=== PATIENT | male | born 1995 | race Caucasian/White ===

== ENCOUNTER 2022-02-23 07:32 | Emergency (ER) | payer OTHER, SELFPAY ==
--- NOTE | ~2022-02-23 | XR_ITS ---
EXAMINATION: XR chest 2V EXAM DATE: 02/23/2022 08:02 INDICATION: Bilateral shoulder, back pain. TECHNIQUE: Frontal and lateral projections of the chest obtained and reviewed. There is no prior mary dy for comparison. FINDINGS: The lungs are clear. There are no pleural effusions. The cardiomediastinal silhouette is within normal limits. There is no pneumothorax suspected. The bones and soft tissues are unremarkab le. IMPRESSION: Normal chest x-ray exam. Reviewed, dictated and finalized at location B. IMPRESSION: Normal chest x-ray exam.
[2022-02-23 07:39] VITALS: BP 154/102; PULSE 107; RESP 17; TEMP 36.4; O2SAT 100
[2022-02-23 07:41] VITALS: PULSE 110
--- NOTE | 2022-02-23 07:42 | ECG_ITS ---
Measurements Intervals [place] Rate: 104 P: 46 [place]: 156 QRS: 49 QRSD: 102 T: 44 QT: 328 QTc: 432 Interpretive Statements SINUS TACHYCARDIA POSSIBLE LEFT ATRIAL ENLARGEMENT [-0.1mV P WAVE IN V1/V2] BORDERLINE ECG NO PREVIOUS ECG AVAILABLE FOR COMPARISON Electronically Signed On 02-23-2022 15:40:54 CDT by Ty Mccarty M.D.
--- NOTE | 2022-02-23 08:07 | ED.GENADULT ---
HPI - General Adult General Chief complaint: Unspecified Stated complaint: bilateral shoulder pain, back pain Time Seen by Provider: 02/23/22 07:50 Source: patient Mode of arrival: ambulatory Limitations: no limitations History of Present Illness HPI narrative: Patient is a 26-year-old male complaining of chest pain, right-sided, 7 out of 10, sharp radiating to back, worse with deep breaths, started this morning. Patient states that he had URI symptoms 1 week ago. Patient denies any shortness of breath, abdominal pain, nausea, vomiting, diaphoresis, fever or chills Related Data Home Medications Medication Instructions Recorded Confirmed No Home Medications 02/23/22 02/23/22 Allergies Allergy/AdvReac Type Severity Reaction Status Date / Time No Known Allergies Allergy Verified 02/23/22 07:41 Review of Systems Review of Systems: All systems reviewed & are unremarkable except as noted in HPI and below Constitutional: Constitutional: Denies body ache(s), Denies chills, Denies excessive sweating, Denies fatigue, Denies fever(s), Denies headache(s), Denies lethargy, Denies malaise, Denies weakness and Denies weight loss Eyes: Eyes: Denies blurry vision, Denies change in vision and Denies loss of vision ENT: Denies dizziness, Denies ear discharge, Denies headache(s), Denies lip swelling, Denies epistaxis, Denies nasal congestion, Denies neck pain, Denies throat swelling and Denies tongue swelling Cardiovascular: Cardiovascular: Denies diaphoresis, Denies rapid heart rate, Denies edema, Denies irregular heart rhythm, Denies lightheadedness, Denies palpitations, Denies dyspnea and Denies dyspnea on exertion Respiratory: Respiratory: Denies chest congestion, Denies cough, Denies hemoptysis, Denies dyspnea and Denies dyspnea on exertion Gastrointestinal: Gastrointestinal: Denies abdominal pain, Denies melena, Denies hematochezia, Denies diarrhea, Denies nausea, Denies vomiting and Denies hematemesis Musculoskeletal: Musculoskeletal: Denies abnormal gait, Denies deformity, Denies joint swelling, Denies limited range of motion, Denies neck pain and Denies numbness Neurologic: Denies Abnormal speech present, Denies abnormal gait, Denies confusion, Denies dizziness, Denies headache(s), Denies focal weakness, Denies loss of vision, Denies numbness, Denies Other visual disturbances, Denies Sensory deficit (Neuro) and Denies weakness Psychiatric: Psychiatric: Denies confusion, Denies depression, Denies auditory hallucinations, Denies homicidal ideation and Denies suicidal ideation Endocrine: Endocrine: Denies cold intolerance, Denies excessive sweating, Denies fatigue, Denies heat intolerance and Denies palpitations Hematologic/Lymphatic: Hematologic/Lymphatic: Denies easy bleeding and Denies easy bruising Allergic/Immunologic: Allergic/Immunologic: Denies lip swelling, Denies throat swelling and Denies tongue swelling PMFSH Family History Family History Father Hypertension Mother Hypertension Thyroid disorder Sibling Depression Social History Social History Smoking status: Never smoker Alcohol intake: current Substance use: never Substance use type: does not use Comments Past medical history: None Family history: Negative for coronary disease, SC or aneurysm Exam Const: General: cooperative, healthy appearing, comfortable, no acute distress, well developed, alert and awake; No confusion Orientation/consciousness: oriented to person, oriented to place, oriented to time, patient oriented x3 and No confusion Limitations: no limitations HENMT: Head: normal to inspection, normocephalic and atraumatic Ears: hearing grossly normal bilaterally, TM normal on the right and TM normal on the left General nose exam: Normal external nose present, Normal nares present and No nasal discharge present Face and sinus
[2022-02-23 08:40] LABS: Basophils Absolute Auto 0.1 K/mm3 (0.0-0.1); Basophils Percent Auto 0.6 % (0.2-1.2); Eosinophils Absolute Auto 0.3 K/mm3 (0-0.3); Eosinophils Percent Auto 2.4 % (0-4.4); Hematocrit 43.8 % (42.0-52.0); Hemoglobin 14.6 g/dL (14.0-18.0); Immature Granulocyte Absolute 0.02 K/mm3 (0.00-0.031); Immature Granulocyte Percent A 0.2 % (0-0.5); Lymphocytes Percent Auto 14.4 % (18.3-44.2); Mean Corpuscular HGB Conc 33.3 g/dl (32-36); Mean Corpuscular Hemoglobin 30.8 pg (26-34); Mean Corpuscular Volume 92.4 fl (80-100); Mean Platelet Volume 8.8 fl (7.4-10.4); Monocytes Absolute Auto 0.7 K/mm3 (0.1-0.6); Neutrophils Absolute Auto 7.9 K/mm3 (1.3-6.7); Neutrophils Percent Auto 75.4 % (45.5-73.1); Platelet Count Result 269 k/mm3 (150-375); Red Blood Count 4.74 M/mm3 (4.6-6.20); Red Cell Distribution Width 12.4 % (11.5-14.5); White Blood Count 10.4 K/mm3 (4.5-10.0)
[2022-02-23 08:50] LABS: INR 0.9; Partial Thromboplastin Time 26.4 SECONDS (22.3-36.8); Prothrombin Time 11.8 Seconds (11.1-14.7)
[2022-02-23 08:53] LABS: Alanine Aminotransferase 44 U/L (4-50); Albumin Level 4.6 g/dL (3.5-5.1); Alkaline Phosphatase 67 U/L (38-126); Anion Gap 9 mmol/L (8-16); Aspartate Amino Transferase 48 U/L (17-59); Bilirubin,Total 0.7 mg/dL (0.2-1.3); Blood Urea Nitrogen 16 mg/dL (9-20); Calcium 9.4 mg/dL (8.4-10.2); Carbon Dioxide 26 mmol/L (22-30); Chloride 104 mmol/L (98-107); Estimated CRCL calculation 117 ml/min; Estimated Glomerular Filt Rate > 60; Glucose 98 mg/dL (65-110); Lipase 56 U/L (23-300); Sodium 139 mmol/L (137-145)
[2022-02-23 09:03] LABS: Troponin I < 0.012 ng/mL (0.000-0.034)
[2022-02-23] MEDS: ASPIRIN 81 MG CHEWABLE TABLET 324 MG PO (09:10)
[2022-02-23 09:13] LABS: D Dimer < 0.22 ug/mL (<0.48)
[2022-02-23 11:12] LABS: Troponin I < 0.012 ng/mL (0.000-0.034)
[2022-02-23 11:25] VITALS: BP 132/88; PULSE 109; RESP 18; O2SAT 95
== END 2022-02-23 11:27 | disposition home or self-care (01) ==
PROVIDERS: Emergency Provider Emergency Medicine
DX: R09.1 Pleurisy (principal); R94.31 Abnormal electrocardiogram [ECG] [EKG]; R00.0 Tachycardia, unspecified
CPT/HCPCS: 36415; 71046; 80053; 83690; 84484; 85025; 85380; 85610; 85730; 93005; 99284; A9270

== ENCOUNTER 2022-02-24 13:17 | Observation (INO) | payer OTHER, SELFPAY ==
[2022-02-24] VITALS (33 sets, daily range): BP systolic 102–139; BP diastolic 56–90; PULSE 110–135; RESP 16–32; TEMP 37.2–37.4; O2SAT 95–100; BMI 28.2
--- NOTE | ~2022-02-24 | CT_ITS ---
EXAMINATION: CTA chest PE protocol DATE: 02/24/2022 14:44 INDICATION: Chest pain TECHNIQUE: Computed tomography (CT) pulmonary angiogram of the chest was performed with 100 mL Omnipa que-350 intravenous contrast. Additional 3D reconstructions utilizing coronal maximum intensity proje ction (MIP) were performed. Automated exposure control and iterative reconstruction technique were em ployed. The dose-length product was 536.08 mGy-cm. COMPARISON: None FINDINGS: . contrast opacification of the pulmonary arteries. There is mild streak artifact from dense contrast in the superior vena cava and right atrium. Mild scattered respiratory motion artifact prominent in the basilar left lower lobe where it significantly decreases sensitivity in some of the smaller subse gmental pulmonary arteries. No pulmonary embolism. Linear and bandlike atelectasis at the bilateral l [place] bases. Small left pleural effusion. No pulmonary edema or right-sided pleural effusion. No pneumo thorax. Heart size is normal. Small pericardial effusion. Enlargement of the main pulmonary artery co nsistent with pulmonary arterial hypertension. Thoracic aorta is normal in caliber with no dissection . No pathologically enlarged thoracic lymphadenopathy. Upper abdomen is unremarkable. Mild mid thorac ic spondylosis. IMPRESSION: 1. No pulmonary embolism. Sensitivity decreased in the left basilar subsegmental pulmonary arteries d ue to respiratory motion. 2. Small left pleural effusion. 3. Small pericardial effusion. Reviewed, dictated and finalized at location A. IMPRESSION: 1. No pulmonary embolism. Sensitivity decreased in the left basilar subsegmenta l pulmonary arteries due to respiratory motion. 2. Small left pleural effusion. 3. Small pericardial effusion.
--- NOTE | 2022-02-24 13:21 | ECG_ITS ---
Measurements Intervals [place] Rate: 117 P: 33 [place]: 136 QRS: 63 QRSD: 98 T: 59 QT: 303 QTc: 423 Interpretive Statements SINUS TACHYCARDIA POSSIBLE LEFT ATRIAL ENLARGEMENT [-0.1mV P WAVE IN V1/V2] ST ELEVATION, PROBABLY EARLY REPOLARIZATION OR PERICARDITIS [ST ELEVATION WITH NORMALLY INFLECTED T WAVE] ABNORMAL ECG COMPARED TO ECG 02/23/2022 08:26:05 ST (T WAVE) DEVIATION MORE PROMINENT Electronically Signed On 02-24-2022 17:26:50 CDT by Ty Mccarty M.D.
--- NOTE | 2022-02-24 14:20 | ED.GENADULT ---
HPI - General Adult General Chief complaint: Recheck/Abnormal Lab/Rx Stated complaint: sent for CT Time Seen by Provider: 02/24/22 13:34 Source: RN notes reviewed History of Present Illness HPI narrative: Patient presents emergency department from home for chest pain. Patient symptoms of been ongoing for the past 3 days states he is evaluated in the emergency department yesterday and had a work-up that was normal and discharged to follow-up with his PCP today with continued pain was recommended come the emergency department for CT scan rule out a pulmonary embolism. Patient states chest pain is located midsternal chest and is described as sharp and stabbing is worse with deep inspiration or movement and improved with rest states radiates into the right chest and into the right scapula denies feeling of shortness of breath at rest but does note shortness of breath with pain as he feels like he cannot take a deep breath denies any fevers or chills abdominal pain nausea or vomiting Related Data Home Medications Medication Instructions Recorded Confirmed No Home Medications 02/24/22 02/24/22 Allergies Allergy/AdvReac Type Severity Reaction Status Date / Time No Known Allergies Allergy Verified 02/24/22 14:35 Review of Systems Review of Systems: Gen.: Denies fevers or chills ENT: Denies congestion Respiratory: Denies shortness of breath or cough CV: See HPI GI: Denies abdominal pain nausea, emesis or diarrhea Musculoskeletal: Denies back pain or muscle pain Neuro: Denies numbness, tingling, weakness or focal weakness Skin: Denies rash Except as documented, all other systems reviewed and negative [facility] Past Medical History Medical History (Updated 02/24/22 @ 19:11 by Mega Randhawa DO) Hypertrophy of both inferior nasal turbinates Family History Family History Father Hypertension Mother Hypertension Thyroid disorder Sibling Depression Social History Social History Smoking status: Never smoker Alcohol intake: current Substance use: never Substance use type: does not use Exam Narrative: APPEARANCE: No acute distress, nontoxic, resting in bed EYES: EOMI HEENT: Normocephalic, atraumatic, OMM RESPIRATORY: No respiratory distress Clear to auscultation bilaterally with no rhonchi wheezing or rales. CARDIOVASCULAR: Tachycardic and regular without murmurs rubs or gallops. Chest pain improved with leaning forward ABDOMINAL: Soft, nontender, nondistended, no rebound or guarding MUSCULOSKELETAl: Moves all extremities. No clubbing, cyanosis or edema. NEURO: Awake and alert. Following commands, speech normal, no focal deficits SKIN:: Warm, dry. No rashes lesions or abrasions PSYCHIATRIC: Normal affect/mood, Course Course Emergency Course: Reviewed previous records Discussed with Dr. Mccarty initial EKG and Dr. Mccarty was able to get on the computer and reviewed her EKG from today from yesterday this time believes it is consistent with pericarditis recommends patient start on anti-inflammatories and discharged to follow-up as an outpatient Discussed with the patient he only taken 1 dose of ibuprofen today Called and discussed with Dr. Mccarty Discussed with patient results of workup and diagnosis. Agrees with plan for consult recommends patient remain on ibuprofen 800 mg 3 times a day request no colchicine at this time and echo ordered in a.m. Discussed with MATTEO Riddle for Dr. Barajas agrees with admission Discussed with patient and family results of workup and diagnosis. Discussed need for admission. Patient and family understand and agree to current treatment plan Vital Signs Vital signs: Vital Signs Temperature 99.0 F 02/24/22 13:19 Pulse Rate 123 H 02/24/22 13:19 Respiratory Rate 16 02/24/22 13:19 Blood Pressure 139/76 02/24/22 13:19 Pulse Oximetry 100 02/24/22 1
[2022-02-24 14:22] LABS: Basophils Percent Auto 0.3 % (0.2-1.2); Eosinophils Percent Auto 0.2 % (0-4.4); Hematocrit 44.1 % (42.0-52.0); Hemoglobin 14.6 g/dL (14.0-18.0); Immature Granulocyte Absolute 0.03 K/mm3 (0.00-0.031); Immature Granulocyte Percent A 0.3 % (0-0.5); Lymphocytes Absolute Auto 0.95 K/mm3 (0.9-3.2); Lymphocytes Percent Auto 8.1 % (18.3-44.2); Mean Corpuscular HGB Conc 33.1 g/dl (32-36); Mean Corpuscular Hemoglobin 30.7 pg (26-34); Mean Corpuscular Volume 92.6 fl (80-100); Mean Platelet Volume 8.6 fl (7.4-10.4); Monocytes Absolute Auto 1.3 K/mm3 (0.1-0.6); Monocytes Percent Auto 11.2 % (2.6-8.5); Neutrophils Absolute Auto 9.4 K/mm3 (1.3-6.7); Neutrophils Percent Auto 79.9 % (45.5-73.1); Platelet Count Result 280 k/mm3 (150-375); Red Blood Count 4.76 M/mm3 (4.6-6.20); Red Cell Distribution Width 12.6 % (11.5-14.5); White Blood Count 11.8 K/mm3 (4.5-10.0)
[2022-02-24 14:32] LABS: Alanine Aminotransferase 36 U/L (4-50); Albumin Level 4.7 g/dL (3.5-5.1); Alkaline Phosphatase 71 U/L (38-126); Anion Gap 8 mmol/L (8-16); Aspartate Amino Transferase 32 U/L (17-59); Bilirubin,Total 1.1 mg/dL (0.2-1.3); Blood Urea Nitrogen 13 mg/dL (9-20); Calcium 9.2 mg/dL (8.4-10.2); Carbon Dioxide 28 mmol/L (22-30); Chloride 102 mmol/L (98-107); Estimated CRCL calculation 117 ml/min; Estimated Glomerular Filt Rate > 60; Glucose 117 mg/dL (65-110); Lipase 25 U/L (23-300); Potassium 4.1 mmol/L (3.4-5.0); Sodium 138 mmol/L (137-145)
--- NOTE | 2022-02-24 14:32 | PC.NURSE ---
Pt states he does not need morphine at this time. States that the pain is not bad, he states he will need stronger meds for bed
[2022-02-24 14:47] LABS: Troponin I < 0.012 ng/mL (0.000-0.034)
[2022-02-24] MEDS: SODIUM CHLORIDE 0.9% IV 1,000 ML 999 ML IV CONT (15:29)
[2022-02-24 17:19] LABS: Troponin I < 0.012 ng/mL (0.000-0.034)
--- NOTE | 2022-02-24 19:46 | PM.IMHP ---
H&P: HPI History of Present Illness Date/Time: 02/24/22 19:46 Chief Complaint: Chest pain. Narrative: This is a 26-year-old male with known significant past medical history patient's shews tobacco. Patient presents to the emergency room due to chest pain which is localized to the retrosternal area worse with deep inspiration radiates to the back pain is relieved by leaning forward, patient went to the urgent care the day before where he had some routine basic workup that was non yielding and patient was sent home with follow-up with PCP however pain continue and was sent to emergency room to our hospital. According to the patient he had upper respiratory infection like symptoms couple of weeks ago, patient denies any rashes, joint pain or swelling, calves pain, no ankle swelling, no pedal swelling, no fevers no rigors no chills, no cough, no sputum production, no nausea vomiting abdominal pain or diarrhea patient has had palpitations he was also noted to be tachycardic in emergency room preliminary workup was significant for CT angio of the chest shows small pericardial effusion, ECG with ST segment elevation diffusely localized. Patient is being admitted for further evaluation, management and treatment. Review of Systems Review of Systems: Chest pain with radiation to the back worse with inspiration relieved by leaning forward ,palpitations. Constitutional: Constitutional: Denies chills, Reports difficulty sleeping, Denies fatigue, Denies fever(s), Denies lethargy, Denies malaise, Denies night sweats, Denies poor appetite, Denies weakness and Denies weight loss Eyes: Eyes: Denies change in vision ENT: Denies dysphagia, Denies vertigo, Denies nasal congestion, Denies nasal discharge, Denies nasal obstruction and Denies odynophagia Cardiovascular: Cardiovascular: Reports chest pain, Reports chest pain at rest, Reports rapid heart rate, Denies pedal edema, Denies claudication, Denies leg edema, Denies lightheadedness, Denies radiating jaw, neck or arm pain, Reports palpitations, Denies dyspnea on exertion, Denies orthopnea and Denies paroxysmal nocturnal dyspnea Respiratory: Respiratory: Denies change in phlegm color, Denies cough, Denies excessive phlegm production, Reports pain on inspiration, Denies dyspnea, Denies dyspnea on exertion and Denies wheezing Gastrointestinal: Gastrointestinal: Denies abdominal pain, Denies dyspepsia, Denies heartburn, Denies diarrhea, Denies nausea and Denies vomiting Genitourinary: Genitourinary: Denies dysuria and Denies flank pain Musculoskeletal: Musculoskeletal: Denies back pain, Denies myalgias, Denies arthralgias, Denies joint swelling and Reports tingling (Bilateral forearm ulnar distribution.) Integumentary/Breasts: Skin/Breast: Denies lesions, Denies rash, Denies skin ulcer and Denies sores Neurologic: Denies vertigo, Denies dizziness, Denies focal weakness and Denies Sensory deficit (Neuro) Psychiatric: Psychiatric: Reports no additional psychiatric complaints and Reports as per HPI Endocrine: Endocrine: Denies cold intolerance, Denies heat intolerance, Denies polyphagia, Denies polydipsia and Denies palpitations Hematologic/Lymphatic: Hematologic/Lymphatic: Reports no additional hematologic/lymphatic complaints and Reports as per HPI Allergic/Immunologic: Allergic/Immunologic: Reports no additional allergic/immunologic complaints and Reports as per HPI [facility] Past Medical History Medical History (Updated 02/24/22 @ 19:11 by Mega Randhawa DO) Hypertrophy of both inferior nasal turbinates Family History Family History (Updated 02/24/22 @ 21:20 by Alejandra Castellano RN) Father Hypertension Mother Hypertension Thyroid disorder Sibling Depression Mitral valve prolapse Social History Social History Smoking status: Never smoker Smokeless tobacco user: chewing tobacco Second hand tobacco smoke exposure: No (Quit chewing tobacco
--- NOTE | 2022-02-24 21:02 | PC.NURSE ---
This patient, Dereck Mccoy, was admitted to IMU Room 214-01 at 2039. Patient/family oriented to hospital policies and general routines including ID bracelet, bed and alarms, visiting hours, pain management, procedures, bathroom and other care routines, personal items, smoking policy, room service/diet, and visiting hours. Information on how to activate the Rapid Response Team has been discussed. Patient/Family are encouraged to report perceived risks to care and to ask questions if they do not understand what they are told or what they should do.
[2022-02-24 21:35] LABS: Troponin I < 0.012 ng/mL (0.000-0.034)
[2022-02-25] VITALS (9 sets, daily range): BP systolic 101–132; BP diastolic 61–74; PULSE 87–108; RESP 16–24; TEMP 36.9–37.2; O2SAT 95–98
[2022-02-25 05:28] LABS: Basophils Percent Auto 0.3 % (0.2-1.2); Eosinophils Absolute Auto 0.1 K/mm3 (0-0.3); Eosinophils Percent Auto 1.1 % (0-4.4); Hematocrit 39.6 % (42.0-52.0); Hemoglobin 13.1 g/dL (14.0-18.0); Immature Granulocyte Absolute 0.03 K/mm3 (0.00-0.031); Immature Granulocyte Percent A 0.3 % (0-0.5); Lymphocytes Absolute Auto 1.92 K/mm3 (0.9-3.2); Lymphocytes Percent Auto 16.8 % (18.3-44.2); Mean Corpuscular HGB Conc 33.1 g/dl (32-36); Mean Corpuscular Hemoglobin 30.8 pg (26-34); Mean Corpuscular Volume 93.2 fl (80-100); Monocytes Absolute Auto 1.7 K/mm3 (0.1-0.6); Monocytes Percent Auto 15.2 % (2.6-8.5); Neutrophils Absolute Auto 7.6 K/mm3 (1.3-6.7); Neutrophils Percent Auto 66.3 % (45.5-73.1); Platelet Count Result 268 k/mm3 (150-375); Red Blood Count 4.25 M/mm3 (4.6-6.20); White Blood Count 11.4 K/mm3 (4.5-10.0)
[2022-02-25 05:35] LABS: Alanine Aminotransferase 26 U/L (4-50); Alkaline Phosphatase 57 U/L (38-126); Anion Gap 7 mmol/L (8-16); Aspartate Amino Transferase 21 U/L (17-59); Bilirubin,Total 1.1 mg/dL (0.2-1.3); Blood Urea Nitrogen 12 mg/dL (9-20); Calcium 8.6 mg/dL (8.4-10.2); Carbon Dioxide 25 mmol/L (22-30); Chloride 104 mmol/L (98-107); Estimated CRCL calculation 117 ml/min; Estimated Glomerular Filt Rate > 60; Glucose 113 mg/dL (65-110); Potassium 3.9 mmol/L (3.4-5.0); Sodium 136 mmol/L (137-145)
--- NOTE | 2022-02-25 06:00 | ECHO_ITS ---
Patient Info Name: Dereck Mccoy Age: 26 years : 1995 Gender: Male Ht: 75 in Wt: 225 lbs BSA: 2.34 m2 HR: 96 bpm BP: 101 / 61 mmHg Heart Rhythm: Sinus Rhythm Technical Quality: Good Exam Date: 02/25/2022 8:10 AM Exam Location: [facility] Pulmonary Patient Status: Outpatient Admit Date: 02/24/2022 Staff Ordering Physician: Mega Randhawa DO Supervisory Investigative Specialist: Mmai Kate RDCS Attending Provider: Олег Barajas MD Referring Physician: Edis HEWITT; Exam Type: CA echo doppler color flow Study Info Indications I31.3 - Pericardial effusion (noninflammatory) Complete two-dimensional, color flow and Doppler transthoracic echocardiogram is performed. Summary 1. Left ventricular chamber dimension is normal. 2. Left ventricular systolic function is normal, estimated at 60-65%. 3. There is moderately increased left ventricular wall thickness. 4. The left ventricular diastolic function is normal. 5. Right atrial chamber dimension is mildly enlarged. 6. There is trace tricuspid valve regurgitation. 7. No pulmonary hypertension, estimated pulmonary arterial systolic pressure is 28 mmHg. 8. There is small pericardial effusion. Left Ventricle Left ventricular chamber dimension is normal. Left ventricular systolic function is normal, estimated at 60-65%. There is moderately increased left ventricular wall thickness. The left ventricular diastolic function is normal. Right Ventricle Right ventricular chamber dimension is normal. Right ventricular systolic function is normal. Left Atria Left atrial chamber dimension is normal. Right Atria Right atrial chamber dimension is mildly enlarged. Aortic Valve The aortic valve is trileaflet. There is no aortic valve sclerosis. There is no aortic valve stenosis. There is no aortic valve regurgitation. Pulmonic Valve The pulmonic valve is not well visualized. There is trace pulmonic regurgitation. Mitral Valve The mitral valve has normal leaflets. There is trace mitral valve regurgitation. Tricuspid Valve The tricuspid valve leaflets are normal. There is trace tricuspid valve regurgitation. No pulmonary hypertension, estimated pulmonary arterial systolic pressure is 28 mmHg. Pericardium/Pleural The pericardium appears normal. There is small pericardial effusion. Inferior Vena Cava Normal inferior vena cava with >50% collapse upon inspiration consistent with normal right atrial pressure, 5 mmHg. Aorta The aortic root size at the sinus of Valsalva is normal. Left Ventricular Outflow Tract Name Value Normal LVOT 2D LVOT Diameter 2.3 cm LVOT Doppler LVOT Peak Gradient 3 mmHg LVOT Mean Gradient 1 mmHg LVOT VTI 18 cm LVOT VTI/AV VTI Ratio 0.9 LVOT Stroke Volume 73 ml LVOT CO 6.6 l/min LVOT CI 2.8 l/min/m2 Pulmonic Valve Name
[2022-02-25] MEDS: IBUPROFEN 400 MG TABLET 800 MG PO ×2 (06:24→15:00)
[2022-02-25] MEDS: PANTOPRAZOLE 40 MG TABLET PO (10:00)
--- NOTE | 2022-02-25 12:41 | ECG_ITS ---
Measurements Intervals [place] Rate: 96 P: 31 [place]: 155 QRS: 47 QRSD: 110 T: 56 QT: 345 QTc: 436 Interpretive Statements SINUS RHYTHM DIFFUSE ST ELEVATION, CONSIDER EARLY REPOLARIZATION OR PERICARDITIS [ST ELEVATION WITH NORMALLY INFLECTED T WAVE] ABNORMAL ECG COMPARED TO ECG 02/24/2022 13:25:35 HEART RATE HIS DECREASED ST ELEVATIONS MORE PROMINENT DIFFUSELY Electronically Signed On 02-25-2022 17:04:09 CDT by Ty Mccarty M.D.
--- NOTE | 2022-02-25 13:12 | PM.IMPN ---
Progress Note: A&P Assessment and Plan (1) Pericarditis: Code(s): I31.9 - Disease of pericardium, unspecified Status: Acute Assessment and Plan: Admit to telemetry unit Continues telemetry Ibuprofen 100 mg p.o. q.8 hours Echocardiogram in a.m. Cardiology consult EKG reviewed CTA reviewed Supportive care 02/25/2022 interval history: patient with complaint of chest pain and shortness of breath suspicious for pericarditis, patient had a cardiac echo results are pending, currently patient states feeling much better denies any complaint of chest pain shortness of breath palpitation, patient be seen by hospice administrator and will review cardiac echo and further recommendation to follow will continue to monitor. (2) Chewing tobacco nicotine dependence: Code(s): F17.220 - Nicotine dependence, chewing tobacco, uncomplicated Status: Acute Assessment and Plan: Counseled about cessation. Patient expressed understanding. Subjective Date/time seen: 02/25/22 13:12 Chief Complaint: Chest pain. HPI: Narrative: This is a 26-year-old male with known significant past medical history patient's shews tobacco. Patient presents to the emergency room due to chest pain which is localized to the retrosternal area worse with deep inspiration radiates to the back pain is relieved by leaning forward, patient went to the urgent care the day before where he had some routine basic workup that was non yielding and patient was sent home with follow-up with PCP however pain continue and was sent to emergency room to our hospital. According to the patient he had upper respiratory infection like symptoms couple of weeks ago, patient denies any rashes, joint pain or swelling, calves pain, no ankle swelling, no pedal swelling, no fevers no rigors no chills, no cough, no sputum production, no nausea vomiting abdominal pain or diarrhea patient has had palpitations he was also noted to be tachycardic in emergency room preliminary workup was significant for CT angio of the chest shows small pericardial effusion, ECG with ST segment elevation diffusely localized. Patient is being admitted for further evaluation, management and treatment. 02/25/2022 interval history: patient with complaint of chest pain and shortness of breath suspicious for pericarditis, patient had a cardiac echo results are pending, currently patient states feeling much better denies any complaint of chest pain shortness of breath palpitation, patient be seen by hospice administrator and will review cardiac echo and further recommendation to follow will continue to monitor. Review of Systems Review of Systems: All systems reviewed & are unremarkable except as noted in HPI and below Exam Narrative: Patient is comfortable, NAD HEENT: eyes are clear and none icteric LUNGS: normal respiratory effort ABD: not distended Lower extremities: no edema SKIN: nonjaundiced Neuro: grossly intact. Objective Data Vital Signs Vital Signs: Vital Signs - 24 hr 02/24/22 13:19 02/24/22 14:26 02/24/22 14:30 Temperature 99.0 F Pulse Rate 123 H 119 H 116 H Respiratory Rate 16 26 H 21 H Blood Pressure 139/76 Pulse Oximetry 100 99 99 02/24/22 14:33 02/24/22 15:18 02/24/22 15:30 Temperature Pulse Rate 118 H 128 H 133 H Respiratory Rate 24 H 27 H 21 H Blood Pressure 135/90 Pulse Oximetry 98 99 99 02/24/22 15:45 02/24/22 16:00 02/24/22 16:15 Temperature Pulse Rate 120 H 126 H 118 H Respiratory Rate 28 H 25 H 26 H Blood Pressure Pulse Oximetry 98 100 98 02/24/22 17:14 02/24/22 17:15 02/24/22 17:30 Temperature Pulse Rate 123 H 126 H 127 H Respiratory Rate 22 H 27 H 29 H Blood Pressure Pulse Oximetry 98 99 98 02/24/22 17:45 02/24/22 18:00 02/24/22 18:20 Temperature Pulse Rate 125 H 128 H 128 H Respiratory Rate 28 H 18 25 H Blood Pressure Pulse Oximetry 100 97 97 02/24/22 18:30 02/24/22 18:45 02/24/22 18:53 Temperature Pulse Rat
--- NOTE | 2022-02-25 13:26 | PM.CNCAR ---
Assessment and Plan Assessment and plan (1) Pericarditis: Qualifiers: Pericarditis type: infectious Infectious pericarditis etiology: viral Chronicity: acute Qualified Code(s): I30.1 - Infective pericarditis Code(s): I31.9 - Disease of pericardium, unspecified Status: Acute Assessment and Plan: Chest pain worse with lying back improve sitting up constant worse with deep breathing very likely sequelae from recent viral illness he subjectively feels was influenza the past few weeks now resolved with ibuprofen. 2D echocardiogram revealed small pericardial effusion without tamponade physiology. No obvious thickening. Serial troponins negative. No evidence of myopericarditis, acute myocardial infarction or pulmonary embolism on CT angiogram of the chest. Significant monocytosis likely secondary to recent viral illness less likely more ominous explanation such as leukemia. Follow-up with PCP. Discussed at length risks, benefits with medical therapy and the importance of anti-inflammatory medications for resolution of pericarditis. Discussed risk were chronic relapsing pericarditis and associated complications with noncompliance or inadequate treatment. Discussed tapering anti-inflammatory therapy with ibuprofen over the next several weeks regardless of symptoms status. His symptoms remain suboptimally controlled addition of colchicine an option but will hold off for now as patient is asymptomatic. Continue ibuprofen 800 mg 3 times daily with full glass of water, food and PPI for the next 5 days, reduced to 800 mg twice daily for another 5 days, 800 mg once daily thereafter. He will then contact our office for further recommendations. He will follow-up with this the outpatient setting within 2 weeks. He has been advised to avoid overly strenuous or sexual activity. No exercise for the next 2 weeks minimum low impact thereafter until otherwise advised. Verbalized understanding and agreed with plan of care. Notify the office with worsening chest pain, shortness of breath, fevers, chills, palpitations, near-syncope or syncope. 2D echocardiogram reviewed preserved LV function further recommendations to follow up on formal review. Anticipate discharge home later today. Repeat 12 lead EKG. (2) Pericardial effusion: Code(s): I31.3 - Pericardial effusion (noninflammatory) Status: Acute Assessment and Plan: Small likely sequelae from pericardial inflammatory process no tamponade physiology. Clinically insignificant at this time otherwise. (3) Sinus tachycardia: Code(s): R00.0 - Tachycardia, unspecified Status: Acute Assessment and Plan: Compensatory secondary to his young age, acute pain related to pericardial inflammatory process. Much improved at this time now that he is pain free. (4) Monocytosis: Code(s): D72.821 - Monocytosis (symptomatic) Status: Acute Assessment and Plan: As above. (5) Chewing tobacco nicotine dependence: Qualifiers: Substance use status: uncomplicated Qualified Code(s): F17.220 - Nicotine dependence, chewing tobacco, uncomplicated Code(s): F17.220 - Nicotine dependence, chewing tobacco, uncomplicated Status: Acute Assessment and Plan: Counseled he must absolutely abstain immediately and indefinitely. He verbalized understanding is actively attempting to quit. History of Present Illness History of Present Illness Consult date/time: 02/25/22 13:26 Requesting physician: Олег Barajas MD Consult reason: chest pain Reason For Visit: Pericarditis, sinus tachycardia Narrative: Patient is a pleasant 26-year-old male with no significant past medical history aside from chewing tobacco dependence who presented emergency department with complaints of 3 days substernal chest pain worse with deep inspiration radiating to his back improved by leaning forward made worse lying back that became severe. He then we
--- NOTE | 2022-02-25 16:16 | PM.DS ---
DS: Admitting Diagnosis Discharge Date 02/25/2022 Admitting Diagnosis chest pain DS: Discharge Diagnosis Discharge Diagnosis (1) Pericarditis: Qualifiers: Chronicity: acute Infectious pericarditis etiology: viral Pericarditis type: infectious Qualified Code(s): I30.1 - Infective pericarditis Code(s): I31.9 - Disease of pericardium, unspecified Status: Acute Assessment and Plan: Admit to telemetry unit Continues telemetry Ibuprofen 100 mg p.o. q.8 hours Echocardiogram in a.m. Cardiology consult EKG reviewed CTA reviewed Supportive care 02/25/2022 interval history: patient with complaint of chest pain and shortness of breath suspicious for pericarditis, patient had a cardiac echo results are pending, currently patient states feeling much better denies any complaint of chest pain shortness of breath palpitation, patient be seen by bank runner and will review cardiac echo and further recommendation to follow will continue to monitor. (2) Chewing tobacco nicotine dependence: Qualifiers: Substance use status: uncomplicated Qualified Code(s): F17.220 - Nicotine dependence, chewing tobacco, uncomplicated Code(s): F17.220 - Nicotine dependence, chewing tobacco, uncomplicated Status: Acute Assessment and Plan: Counseled about cessation. Patient expressed understanding. DS: Summary Hospital Course Reason for hospitalization: Chief Complaint: Chest pain. Narrative: This is a 26-year-old male with known significant past medical history patient's shews tobacco. Patient presents to the emergency room due to chest pain which is localized to the retrosternal area worse with deep inspiration radiates to the back pain is relieved by leaning forward, patient went to the urgent care the day before where he had some routine basic workup that was non yielding and patient was sent home with follow-up with PCP however pain continue and was sent to emergency room to our hospital. According to the patient he had upper respiratory infection like symptoms couple of weeks ago, patient denies any rashes, joint pain or swelling, calves pain, no ankle swelling, no pedal swelling, no fevers no rigors no chills, no cough, no sputum production, no nausea vomiting abdominal pain or diarrhea patient has had palpitations he was also noted to be tachycardic in emergency room preliminary workup was significant for CT angio of the chest shows small pericardial effusion, ECG with ST segment elevation diffusely localized. Patient is being admitted for further evaluation, management and treatment. Hospital Course: 02/25/2022 interval history: patient with complaint of chest pain and shortness of breath suspicious for pericarditis, patient had a cardiac echo results are pending, currently patient states feeling much better denies any complaint of chest pain shortness of breath palpitation, patient will be seen by bank runner and will review cardiac echo and further recommendation to follow will continue to monitor. patient was seen by bank runner had a long discussion for medical management an anti-inflammatory medication, patient was discharged on tapering dose of ibuprofen 800 mg, and to follow-up with bank runner, likely stable will discharge the patient today Status at Discharge Functional status at discharge: independent ambulation Overall status at discharge: patient is back to baseline Time Spent with Patient Time attestation: Total time spent providing and/or coordinating discharge services: Time spent: Greater than 30 minutes Exam Narrative: Patient is comfortable, NAD HEENT: eyes are clear and none icteric LUNGS: normal respiratory effort ABD: not distended Lower extremities: no edema SKIN: nonjaundiced Neuro: grossly intact. DS: Data Data Completed and Pending Labs on day of discharge: Labs from last 24 hours 02/25/22 02/25/22 02/24/22 04:56 04:56 21:10 WBC 11.4 H RBC 4
== END 2022-02-25 18:04 | disposition home or self-care (01) ==
LOC: ANHED 19:11 → ANHIMU 19:35
PROVIDERS: Admitting Provider Family Medicine; Emergency Provider Emergency Medicine; Visit Provider Family Medicine
DX: I30.1 Infective pericarditis (principal); B97.89 Other viral agents as the cause of diseases classified elsewhere; R00.0 Tachycardia, unspecified; D72.821 Monocytosis (symptomatic); F17.220 Nicotine dependence, chewing tobacco, uncomplicated; Z86.16 Personal history of COVID-19
CPT/HCPCS: 36415; 71275; 80053; 83690; 84484; 85025; 85610; 85730; 93005; 93306; 96360; 99285; A9270; G0378; J7030; Q9967